=== PATIENT | male | born 1970 | race African-American/Black ===

== ENCOUNTER 2021-08-04 12:13 | Emergency (ER) | payer BC, OTHER ==
[2021-08-04 14:41] LABS: Hemoglobin 14.8 g/dL (13.5-17.5); Mean Corpuscular HGB CONC 32.9 g/dL (32.0-36.0); Mean Corpuscular Hemoglobin 29.2 pg (27.0-33.0); Mean Corpuscular Volume 88.8 fl (81.2-95.1); Mean Platelet Volume 10.3 fl (7.4-10.4); Platelet Count 288 10x3/uL (150-450); RBC Distribution Width 13.2 % (11.5-14.5); Red Blood Cell (RBC) Count 5.07 10x6/uL (4.32-5.72); White Blood Cell (WBC) Count 5.5 10x3/uL (3.5-10.5)
[2021-08-04 14:45] LABS: ALT (SGPT) 36 U/L (8-55); AST (SGOT) 26 U/L (5-34); Albumin 3.9 g/dL (3.5-5.0); Alkaline Phosphatase 50 U/L (40-110); Anion Gap 12 mmol/L (10-20); BUN (Urea Nitrogen) 15 mg/dL (8.9-20.6); Bilirubin, Total 0.3 mg/dL (0.2-1.2); Calc. Creatinine Clearance 0 mL/min (70-130); Calcium 8.8 mg/dL (7.8-10.44); Carbon Dioxide 27 mmol/L (22-29); Chloride 106 mmol/L (98-107); Globulin 3.1 g/dL (2.4-3.5); Glucose 95 mg/dL (70-105); Potassium 4.6 mmol/L (3.5-5.1); Sodium 140 mmol/L (136-145)
[2021-08-04 16:13] LABS: Band 5 % (5-11); Eosinophils 3 % (0-10); Reactive Lymphocytes 10 % (0-10)
[2021-08-04 16:14] LABS: Lymphocytes 38 % (21-51)
[2021-08-04 16:15] LABS: Monocytes 18 % (0-10)
[2021-08-04 16:16] LABS: Neutrophil 24 % (42-75)
[2021-08-04 16:17] LABS: Large Platelets SLIGHT; MDiff Complete? YES; Platelet Morphology Comment Appears Adequate
[2021-08-04 16:18] LABS: RBC Morphology Normal
== END 2021-08-04 16:50 | disposition home or self-care (01) ==
LOC: CSHERS 12:13
DX: R60.0 Localized edema (principal); I10 Essential (primary) hypertension
CPT/HCPCS: 36415; 80053; 83880; 85025